=== PATIENT | female | born 1945 | race Caucasian/White ===

== ENCOUNTER 2016-07-05 11:01 | Emergency (ER) | payer MEDICARE | END 2016-07-05 13:06 | disposition home or self-care (01) | LOC: ER 11:01 | DX: S40.022A Contusion of left upper arm, initial encounter (principal); E11.9 Type 2 diabetes mellitus without complications; I10 Essential (primary) hypertension; Z79.84 Long term (current) use of oral hypoglycemic drugs; W19.XXXA Unspecified fall, initial encounter ==

== ENCOUNTER 2016-07-12 17:00 | Emergency (ER) | payer MEDICARE | END 2016-07-12 21:51 | disposition home or self-care (01) | LOC: ER 17:00 | DX: R53.1 Weakness (principal); R42 Dizziness and giddiness; H53.8 Other visual disturbances; E11.9 Type 2 diabetes mellitus without complications; I10 Essential (primary) hypertension; E78.00 Pure hypercholesterolemia, unspecified; Z79.84 Long term (current) use of oral hypoglycemic drugs | CPT/HCPCS: 36415; 96360; 96361 ==